=== PATIENT | female | born 1975 | race Caucasian/White ===

== ENCOUNTER 2025-03-20 06:47 | Day surgery (SDC) | payer OTHER ==
[~2025-03-20] VITALS: Ht 154.9 cm; Wt 113.9 kg
[~2025-03-20 06:47] MED LIST: Budeprion Xl300 MG PO; GABA100 PO; LISI20 PO; NEBI5 PO; OMEP20ER PO
[2025-03-20 07:21] VITALS: BP 132/81
--- NOTE | 2025-03-20 07:35 | NUR ---
Ambulatory in Day Surgery. Patient confirms NPO status and agrees with scheduled surgery. Patient states colon prep results clear/yellow. History, Chart, Medications and Allergies reviewed before start of procedure.Patient States Post-Procedure ride home has been arranged.
--- NOTE | 2025-03-20 08:08 | NUR ---
03/20/25 0808 Gaye Cullen 0802-INTO ENDO 1.CONFIRMED AND REVIEWED H&P, MEDCICATIONS, ALLERGIES, MEDICAL HISTORY, RESPIRATORY HISTORY, VITAL SIGNS, 3-LEAD EKG, CONSENTS, AND PHYSICIAN ORDERS. PATIENT CONFIRMS NPO STATUS AND AGREES WITH SCHEDULED PROCEDURE. MONITOR INTACT WITH CONTINUOUS PULSE OXIMETRY, CAPNOGRAPHY, 3-LEAD EKG, INTERMITTENT BP. SUPPLEMENTAL O2 TO BE TITRATED THROUGHOUT PROCEDURE TO MAINTAIN O2 SATURATION ABOVE 90%. PATIENT DETERMINED TO BE ASA APPROPRIATE FOR ANESTHESIA MAC. DR. MORELOS PROVIDING MAC.
[2025-03-20 08:34] VITALS: BP 94/58
--- NOTE | 2025-03-20 08:38 | NUR ---
Discharge instructions reviewed with patient. Patient verbalizes understanding. Copy given to patient to take home. Patient States Post-Procedure ride home has been arranged WITH [facility]. Discharged via wheelchair to private car for ride home.
== END 2025-03-20 08:53 | disposition home or self-care (01) ==
LOC: ORSCMMR 06:47 → ORD 08:00 → ORSCMMR 08:53
PROVIDERS: Internal Medicine Gastroenterology
PROC: 0DBN8ZX Excision of Sigmoid Colon, Via Natural or Artificial Opening Endoscopic, Diagnostic (ICD-10-PCS; principal; 2025-03-20 08:00)
DX: Z12.11 Encounter for screening for malignant neoplasm of colon (principal); K21.9 Gastro-esophageal reflux disease without esophagitis; D12.5 Benign neoplasm of sigmoid colon; I10 Essential (primary) hypertension; F32.A Depression, unspecified; E66.01 Morbid (severe) obesity due to excess calories; Z68.42 Body mass index [BMI] 45.0-49.9, adult; Z79.899 Other long term (current) drug therapy
CPT/HCPCS: 88305; J2704; J7120